=== PATIENT | male | born 1955 | race Caucasian/White ===

== ENCOUNTER → 2016-07-28 | Outpatient (CLI) | payer MEDICAID ==
--- NOTE | 2016-07-28 15:33 | US ---
Bilateral Lower Extremity Venous Doppler Study Clinical Indications: Bilateral lower extremity swelling. Technique: High-frequency transducer was used for compression imaging and Doppler study of the deep veins of both legs from the upper calves to the groins. Pulsed Doppler and color Doppler were utilize d, along with various maneuvers to assess flow in the deep veins. Findings Right Leg: The deep veins of the groin, thigh, knee, and upper calf are well displayed and normally compressible. Doppler flow patterns are unremarkable. There is no evidence of deep venous thrombosi s. Left Leg: The deep veins of the groin, thigh, knee, and upper calf are well displayed and normally c ompressible. Doppler flow patterns are unremarkable. There is no evidence of deep venous thrombosis . There is normal compression of the greater saphenous veins without superficial thrombosis. Bilateral calf edema is noted but no evidence of venous thrombosis. Impression: Normal bilateral venous Doppler study. Bilateral calf edema is present without evidence of thrombosis. Critical results relayed by Dr. Pierson to nuclear medical tech Demond, July 28, 2016, 1528 hours.
== END ==
LOC: FIMAGING 14:25
PROVIDERS: ATTEND Internal Medicine Hematology & Oncology
DX: M79.89 Other specified soft tissue disorders (principal); C84.48 Peripheral T-cell lymphoma, not elsewhere classified, lymph nodes of multiple sites

== ENCOUNTER → 2017-05-21 | Outpatient (CLI) | payer MEDICAID | LOC: FIMAGING 15:19 | PROVIDERS: ATTEND Nurse Practitioner | DX: J90 Pleural effusion, not elsewhere classified (principal); Z85.72 Personal history of non-Hodgkin lymphomas ==

== ENCOUNTER → 2017-05-28 | Outpatient (CLI) | payer MEDICAID ==
[~2017-05-28] MED LIST: LIDOCAINE 1% 300 MG/30 ML SDV ONE
== END ==
LOC: FIMAGING 14:33
PROVIDERS: ATTEND Internal Medicine Hematology & Oncology
PROC: 0W9B3ZZ Drainage of Left Pleural Cavity, Percutaneous Approach (ICD-10-PCS; principal; 2017-05-28)
DX: J90 Pleural effusion, not elsewhere classified (principal)
CPT/HCPCS: 85060-90; 88184-90; 88185-91

== ENCOUNTER → 2017-05-30 | Outpatient (CLI) | payer MEDICAID | LOC: FIMAGING 12:43 | PROVIDERS: ATTEND Internal Medicine Hematology & Oncology | PROC: 0W9B3ZZ Drainage of Left Pleural Cavity, Percutaneous Approach (ICD-10-PCS; principal; 2017-05-30) | DX: J90 Pleural effusion, not elsewhere classified (principal); I51.7 Cardiomegaly ==

== ENCOUNTER 2017-06-07 10:34 | Inpatient (IN) | payer MEDICAID ==
[2017-06-07] MEDS ORDERED: ONDANSETRON 4 MG/2 ML VIAL IVP PRN ×2 (11:04→17:33)
[2017-06-07] MEDS ORDERED: ACETAMINOPHEN 325 MG TAB PO PRN (11:04)
[2017-06-07] MEDS ORDERED: ONDANSETRON DISINTEGRATING 4 MG TAB PO PRN (11:04)
[2017-06-07] MEDS ORDERED: ALTEPLASE 2 MG VIAL IVP PRN (11:21)
[2017-06-07] MEDS ORDERED: ALLOPURINOL 300 MG TAB PO SCH (11:30)
[2017-06-07] MEDS: NS 1,000 ML IV SCH ×2 (12:42→18:24)
[2017-06-07] MEDS ORDERED: BUPIVACAINE 0.5% 30 ML SDV ONE (13:03)
--- NOTE | 2017-06-07 13:05 | PDANEPAE ---
ANE History of Present Illness 62 year old male with NHL presents with perforated bowel. ANE Past Medical History - Cardiovascular History Hx Hypertension: No Hx Arrhythmias: No Hx Chest Pain: No Hx Coronary Artery / Peripheral Vascular Disease: No Hx CHF / Valvular Disease: No Hx Palpitations: No Cardiovascular History Comment: Has had cardiotoxic chemotherapy treatment in past. (Last received chemo in September 2015) - Pulmonary History Hx COPD: No Hx Asthma/Reactive Airway Disease: No Hx Recent Upper Respiratory Infection: No Hx Oxygen in Use at Home: No Hx Sleep Apnea: No Pulmonary History Comment: Recent thoracentesis with 3L fluid pulled off. Does report shortness of breath. - Endocrine History Hx Diabetes: No Hypothyroid: No Hyperthyroid: No Obesity: no - Renal History Hx Renal Disorders: No - Liver History Hx Hepatic Disorders: No - Neurological & Psychiatric Hx Hx Neurological and Psychiatric Disorders: Yes Neurological / Psychiatric History Comment: Peripheral neuropathy following chemotherapy. Impacts finger and toe tips. - Cancer History Hx Cancer: Yes Cancer History Comment: NHL on chemo - Congenital Disorder History Hx Congenital Disorders: No - GI History Hx Gastrointestinal Disorders: Yes Gastrointestinal History Comment: Ruptured bowels. - Chronic Pain History Chronic Pain: No ANE Review of Systems Review of systems is: negative Review of Systems: - Exercise capacity Exercise capacity: >=4 METS ANE Patient History - Allergies Allergies/Adverse Reactions: No Known Allergies Allergy (Unverified 12/23/15 14:06) - Home Medications Home medications: home medication list seen and reviewed Home Medications: Ascorbic Acid [Vitamin C 500 mg (*)] 500 mg PO DAILY 06/07/17 [Last Taken Unknown] Ibuprofen [Motrin (*)] 200 mg PO Q8HRS PRN 06/07/17 [Last Taken 06/06/17] oxyCODONE IR [Oxycodone Ir (*)] 5 mg PO Q3-4PRN PRN 06/07/17 [Last Taken ] - NPO status NPO Status: no food or drink >8 hours - Anes Hx Anes Hx: no prior problems - Smoking Hx Smoking Status: Never smoked - Alcohol Use Alcohol Use: None - Family Anes Hx Family Anes Hx: neg - N/A ANE Labs/Vital Signs - Vital Signs Vital Signs: reviewed preoperatively; see RN documention for details Blood Pressure: 128/85 Heart Rate: 102 Respiratory Rate: 18 O2 Sat (%): 93 Height: 182.88 cm Weight: 72.121 kg ANE Physical Exam - Airway Mallampati Score: Class 2 Mouth exam: poor dentition, olvera - Pulmonary Pulmonary: no respiratory distress - Cardiovascular Cardiovascular: regular rate and rhythym - ASA Status ASA Status: IV ANE Anesthesia Plan Anesthesia Plan: general endotracheal anesthesia (Patient is a DNR, but through conversation with anesthesiologist, patient agrees to suspend DNR in the perioperative period. Per this discussion, DNR will go back in place following discharge from PACU. )
[2017-06-07] MEDS ORDERED: LR 1,000 ML IV ONE (13:06)
--- NOTE | 2017-06-07 13:07 | GHP ---
[f rep st] HISTORY AND PHYSICAL DATE OF ADMISSION: 06/07/2017 CHIEF COMPLAINT: Abdominal pain. HISTORY OF PRESENT ILLNESS: A 62-year-old male with a history of colon cancer status post surgical r esection and adjuvant treatment in 2003 with a newly diagnosed T-cell lymphoma in 2015 status post ch emotherapy. Patient has had a normally functioning ostomy until 7 days ago when he noted decreased o utput, increasing abdominal pain each day. Patient reports some nausea, no vomiting and describes ne joshua 0 output from his ostomy in the last 7 days. Does report taking in minimal fluids without vomit ing but has noted a decrease in his urination as well as darkening of his urine. Patient endorses melo bjective fevers and chills. Denies vision changes. Denies dysphagia. Denies dysuria, hematuria or lower extremity edema. Denies arthralgias or rashes. PAST MEDICAL HISTORY: 1. Colon cancer status post resection with ostomy. 2. T-cell lymphoma status post chemotherapy. 3. Acute myelogenous leukemia, receiving chemotherapy. SOCIAL HISTORY: Negative for tobacco. Occasionally smokes marijuana. Denies alcohol. FAMILY HISTORY: Negative for colon cancer or lymphoma. Patient's father did have a rectal tumor. Leonard canales does not know the details of it. This occurred at age 80 and lead to his . ADVANCED DIRECTIVES: Patient is do not resuscitate. His friend would be his medical decision maker. REVIEW OF SYSTEMS: A 10-point review of systems is negative with the exception of that reported in t he HPI. PHYSICAL EXAMINATION: VITAL SIGNS: Blood pressure 128/85, heart rate 102, respiratory rate 18, satu rating 93% on 1.5 L, temperature 37.4. GENERAL: This is a middle-aged male in no acute distress. H EENT: Notable for dry mucous membranes. Eye exam is negative for any icterus. CARDIAC: Patient's heart sounds are distant but regular. PULMONARY: Reduced breath sounds on the left. Reduced respir atory effort secondary to abdominal pain. No rales are appreciated. GASTROINTESTINAL: There are arielle wel sounds. Abdomen Is mildly distended and tender to palpation in all 4 quadrants, most of which in the right lower. There is no output in the ostomy bag. MUSCULOSKELETAL: Negative for any lower ex tremity edema. SKIN: Negative for any rashes. NEUROLOGIC: Patient is alert and oriented x3. PSYC HIATRIC: He is uncomfortable on my interview and examination. LABORATORY DATA: White count 19.2, hematocrit 41.1, platelets of 53. Creatinine 0.9. Sodium 136, L DH of 5395. Chest x-ray, which I personally reviewed and interpreted, from 05/30/2017, shows a large left-sided pleural effusion. ASSESSMENT AND PLAN: This is a 62-year-old male with newer diagnosis of AML, and abdominal pain. 1. Suspected acute bowel obstruction. Patient is certainly at risk for anatomic causes including ad hesions. However, after discussion with Oncology there is a concern for a chloroma as well related t o his leukemia. Patient has requested that we begin his workup with plain films of the abdomen as he has had multiple recent CT scans. Will make the patient n.p.o., initiate IV fluids, IV pain medicat ions and order abdominal imaging. Oncology will be following as well with recommendations. 2. Left-sided pleural effusion. This is related to the patient's leukemia. Per Dr. Matthews quite rare. Will re-image patient's chest as well. Currently requiring full 1.5 L of supplemental oxygen to maintain adequate oxygen saturations. Discussions related to chemotherapy are underway. 3. History of colon cancer. As above, patient's ostomy has not been functioning properly. Will rin ge and follow up. 4. Acute leukocytosis. Patient has had persistently elevated white counts. This may be exacerbated by acute bowel obstruction. Will work up as above. Can follow with Oncology. 5. Chronic thrombocytopenia. Patient's platelet counts are lower than previous; 53 today, as high a s 140 approximately 8 days ago. Again, discussing with the patient the initiation of chemotherapy. Prophylaxis with Lovenox when platelet counts will tolerate. DIET: N.p.o. for suspected small bowel obstruction. DISPOSITION: Greater than 2 midnights as the patient is presenting with acute abdominal complaints, concern for obstruction and will likely need the initiation of chemotherapy. I have discussed the ca se with Dr. Matthews and Dr. Soto. Will admit the patient to [address] [place] [id number] and initiate workup for smal l bowel obstruction. /[id number]/MODL
[2017-06-07] MEDS: MEROPENEM 1 GM in NS 100 ML IV SCH ×2 (13:38→21:42)
[2017-06-07] MEDS ORDERED: fentaNYL 100 MCG/2 ML INJ ONE (13:44)
[2017-06-07] MEDS ORDERED: PROPOFOL 200 MG/20 ML VIAL ONE (13:44)
[2017-06-07] MEDS ORDERED: ROCURONIUM 50 MG/5 ML VIAL ONE (13:45)
[2017-06-07] MEDS ORDERED: LIDOCAINE 2% 5 ML SDV ONE (13:45)
[2017-06-07] MEDS ORDERED: SUCCINYLCHOLINE CHLORIDE*ANESTHESIA ONLY*200 MG/10 ML SYR IVP ONE (13:45)
[2017-06-07] MEDS ORDERED: ONDANSETRON 4 MG/2 ML VIAL ONE (14:33)
[2017-06-07] MEDS ORDERED: HYDROmorphONE/DILAUDID 2 MG/ML INJ ONE (14:34)
[2017-06-07] MEDS ORDERED: SUGAMMADEX SODIUM 200 MG/2 ML VIAL IVP ONE (14:34)
[2017-06-07] MEDS ORDERED: PHENYLEPHRINE HCL 100 MCG/ML SYR ONE ×2 (16:12)
[2017-06-07] MEDS ORDERED: THROMBIN (BOVINE) 5,000 UNIT VIAL TP ONE (16:31)
[2017-06-07] MEDS ORDERED: ALBUMIN 5% 250 ML BOTTLE IV ONE (16:40)
[2017-06-07] MEDS ORDERED: NALOXONE HCL 0.4 MG/ML INJ IVP PRN ×2 (17:28→17:33)
[2017-06-07] MEDS ORDERED: fentaNYL 100 MCG/2 ML INJ IVP PRN (17:33)
[2017-06-07] MEDS ORDERED: HYDROmorphONE/DILAUDID 1 MG/ML INJ IVP PRN (17:33)
[2017-06-07] MEDS ORDERED: LR 500 ML IV PRN (17:33)
--- NOTE | 2017-06-07 17:37 | POSTANESTH ---
Post Anesthetic Evaluation Cardiovascular Status: Normal, Stable, Similar to Pre-Op Cond Respiratory Status: Normal, Stable, Similar to Pre-op Cond. Level of Consciousness/Mental Status: Can Participate in Eval, Alert and Oriented Pain Control: Adequate, Prn Tx Ordered Nausea/Vomiting Control: Adequate, Prn Tx Ordered Complications Possibly Related to Anesthesia: None Noted (Disposition is ICU, but patient extubated in OR so taken to PACU for anesthesia recovery before transferring to ICU. In PACU, patient hemodynamically stable (no pressors) and interacting appropriately.)
--- NOTE | 2017-06-07 17:39 | POSTOPPROG ---
Post Op Note Date of Operation: 06/07/17 Surgeon: Danielle Arango Strip Cutter: sai Anesthesiologist: andreas Anesthesia: GET(General Endotracheal) Pre-op Diagnosis: free air, pleural effusion Post-op Diagnosis: bowel perforation Indication: 62 yo with bowel perf Procedure: chest tube and ex lap with bowel resection Findings: terminal ileum stuck in pelvis, soft stool palpated in colon, cyst l kidney Inf/Abcess present in the surg proc area at time of surgery?: Yes Depth: Organ Space EBL: 100-500 Drains: Tano Kapoor, Other (chest tube - 3 L out in surgery) Specimen(s): peritoneal nodules bowel resection
--- NOTE | 2017-06-07 18:19 | GCON ---
[f rep st] CONSULTATION MEDICAL ONCOLOGY FOLLOWUP CONSULTATION DATE OF CONSULTATION: 06/07/2017 REFERRING PHYSICIAN: Kelly Quarles MD REASON FOR CONSULTATION: Ongoing management of acute myelogenous leukemia. RECOMMENDATIONS: 1. Agree with surgical consultation on an urgent basis due to free air noted under the diaphragm on his abdominal x-ray. 2. Agree with chest tube placement for his large left pleural effusion. 3. Treatment for his acute leukemia is temporarily on hold pending the results of his laparotomy. I deally, when he is able to be treated he will be treated with 3 days of idarubicin at 12 mg/sq m plus a continuous infusion of jneise-C at 100 mg/sq m days 1 through 7. 4. Eventually if all goes well, he will be a candidate for a bone marrow transplant. ASSESSMENT: This 62-year-old white male presents now with a likely therapy-induced acute myelogenous leukemia. He has noted for the past 10 days he has had no stool output from his colostomy. He has had increasing abdominal pain, probably on the right-hand side. He has also had recurring left pleur al effusion. This has been tapped twice. Leukemia blasts were noted in the in the fluid. The patie nt is now admitted for induction chemotherapy; however, because of the abdominal pain, he had an x-ra y of his abdomen, which revealed free air under the diaphragm. Therefore treatment for his acute michelle kemia was placed on hold, and he will be taken to the operating room for further evaluation. 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 This was diagnosed initially in [place], but he moved to [place] in the middle of his treatment. He apparently underwent 6 cycles of CHOP plus etoposide. He had complications, which included severe mucositis and febrile neutropenia. He had been in complete remission. He has also had history of Pneumocystis pneumonia. This was seen on a lung biopsy. HISTORY OF PRESENT ILLNESS: Please see Assessment. PAST MEDICAL HISTORY: Also remarkable for rectal cancer, which was diagnosed in 2003. He has not yee d any evidence of recurrence of his rectal cancer at this time. His father also had a rectal maligna ncy. SOCIAL HISTORY: The patient does not smoke or drink alcohol. 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 REVIEW OF SYSTEMS: Remarkable for no ostomy output for the past 10 days, right upper quadrant pain, and some shortness of breath. A 10-system review is otherwise unremarkable. PHYSICAL EXAMINATION: GENERAL: Reveals an alert, pale white male, in moderate distress. IMAGING DATA: His abdominal x-ray shows bowel perforation, constipation, and large left pleural effu jacinto. LABORATORY DATA: His CBC today showed a white count of 19,200 with a hemoglobin of 14.4 and a platel et count of 53,000. His creatinine is normal at 0.9. His uric acid was 5.5. His LDH was 5395. His albumin was 3.4. Thank very much for allowing us to continue to participate in this gentleman's care. We will evaluat e when to treat his acute leukemia pending the remainder of his evaluation and treatment for his navin l perforation. /[id number]/MODL
[2017-06-07] MEDS ORDERED: ACYCLOVIR 400 MG TAB PO SCH (21:00)
[2017-06-07] MEDS: morphINE PCA 30 MG/30 ML PCA IV PRN (21:33)
--- NOTE | 2017-06-07 22:10 | GCON ---
[f rep st] CONSULTATION DATE OF CONSULTATION: 06/07/2017 REFERRING PHYSICIAN: Kelly Quarles MD REASON FOR CONSULTATION: Free air. HISTORY OF PRESENT ILLNESS: A 62-year-old man with history of rectal cancer and T-cell lymphoma, now with acute myelogenous leukemia. He has not had ostomy output for approximately 10 days. He has in creased abdominal pain. He was seen at his oncologist's office and referred for admission. An x-ray was obtained, which showed near opacification of the left lung and free air. He has abdominal pain. PAST MEDICAL HISTORY: Rectal cancer. History of T-cell lymphoma. History of acute myelogenous leuk emia. PAST SURGICAL HISTORY: Colostomy. SOCIAL HISTORY: He does not use tobacco. FAMILY HISTORY: Not obtained due to the emergency of the situation. REVIEW OF SYSTEMS: Significant for abdominal pain and decreased ostomy output. Otherwise, 10-point review of systems negative. PHYSICAL EXAMINATION: VITALS: Reviewed. GENERAL: Pleasant, well-nourished man lying on bed. He a ppears ill. HEENT: Normocephalic. No gross hearing deficits. Mucous membranes moist. Pupils equa l and round. No scleral icterus. LUNGS: Only can auscultate breath sounds on the right side, which is clear. The left side is muffled. CARDIAC: Slightly tachycardic. No peripheral edema. ABDOMEN : His ostomy has a flat profile on the left side of the abdomen. There is gas in the bag but no sto ol. He has a low midline incision. He is soft. He is mildly tender to percussion. PSYCH: Mood an d affect normal. NEUROLOGIC: Grossly intact. MUSCULOSKELETAL: Normal nails. LAB RESULTS: I personally reviewed the results of his imaging and his laboratory. IMPRESSION AND PLAN: The patient is a 62-year-old man with history of rectal cancer and no stool out put, history of lymphoma, now leukemia; with free air and a pleural effusion. I will place a chest t ube in him and drain the effusion. I will also perform an exploratory laparotomy, look for the perfo ration and possibly perform a bowel resection. He understands he may be intubated after surgery. He understands there are risks and benefits, such as stroke, heart attack, , blood clots, leak, in fection, prolonged hospital stay, delaying chemotherapy. Unfortunately, the option of not going to s urgery will also be exceedingly dangerous for him. He had his questions answered to his satisfaction , signed the informed consent. He will have meropenem director of investigations to the operating room. /[id number]/MODL
[2017-06-07 23:03] LABS: ABSOLUTE NRBC COUNT 0.38 10^3/uL (0-0.01); ADD DIFF? YES; ADD MORPH? YES; ATYPICAL LYMPHOCYTE FLAG 0 (0-99); FRAGMENT RBC FLAG 0 (0-99); HEMATOCRIT 34.1 % (40.0-51.0); HEMOGLOBIN 11.5 g/dL (13.7-17.5); LEFT SHIFT FLG 90 (0-99); LIPEMIA HEMOLYSIS FLAG 80 (0-99); MEAN CELL HEMOGLOBIN CONCENTR. 33.7 g/dL (32.4-36.7); PLATELET COUNT 99 10^3/uL (150-400); RED BLOOD CELL COUNT 3.83 10^6/uL (4.40-6.38); RED CELL DISTRIBUTION WIDTH 15.6 % (11.5-15.2)
--- NOTE | 2017-06-07 23:05 | GOP ---
[f rep st] OPERATIVE REPORT DATE OF OPERATION: 06/07/2017 SURGEON: Patrice Mohan MD PREOPERATIVE DIAGNOSIS: POSTOPERATIVE DIAGNOSIS: PROCEDURE PERFORMED: FINDINGS: DESCRIPTION OF PROCEDURE: Intraoperative Consultation. HISTORY OF PRESENT ILLNESS: Dr. Arango has asked that I see the patient because of a left renal mass that was incidentally found during abdominal exploration. I have no imaging test to confirm its cons istency so on inspection the kidney had been mobilized and there was no Gerota's fascia or perinephri c fat remaining and the mass was identified. It was a lower pole exophytic mass. The capsule had so mewhat of an inflammatory component to it and it appeared almost as though it was a hemorrhagic cyst, felt ballotable. It was not invading into the parenchyma of the kidney but was more at the lower deloris e exophytic lesion. Intraoperative ultrasound was performed by me and the ultrasound revealed a non cystic lesion and it could have been a hemorrhage versus organized clot. At the present time because the gentleman's complex medical history #1 and #2, not having adequate imaging, #3 having a low plat elet count I had elected not to excise the lesion. I felt that after he gets through his chemotherap y that it would be appropriate to reassess this and reassessment at that point would imply that if it is solid, that we could do a partial nephrectomy, but I would prefer that he be recovered from his p resent condition. I did not biopsy the lesion because if so we would have spilt tumor cells intraabd ominally and I felt that was unnecessary, and if it was benign, it would not need a biopsy in the eusebia g run. So the options discussed were to do a partial nephrectomy, open the lesion up to see if it was a hemorrhagic cyst and cauterization of the lesions. The other would be to do a nephrectomy, but in light of future chemotherapy, it appeared that the upper part of the kidney really had normal palpat ion in size with no scarring and then felt it would be best for as much nephron affect for chemothera py in light of his other disease processes. PROCEDURE: Intraoperative ultrasound of the kidney and it was an intraoperative consultation for lef t renal mass. /[id number]/MODL
[2017-06-07 23:06] LABS: ADD SCAN? NO; NRBC-AUTO% 1.8 % (0.0-0.2); PLATELET CLUMPS FLAG 300 (0-99)
[2017-06-08 00:20] LABS: PLATELET ESTIMATE DECREASED (ADEQ)
[2017-06-08 00:23] LABS: POLYCHROMASIA 1+
[2017-06-08 00:24] LABS: TOXIC VACUOLIZATION PRESENT
--- NOTE | 2017-06-08 03:31 | GOP ---
[f rep st] OPERATIVE REPORT DATE OF OPERATION: 06/07/2017 SURGEON: Danielle rAango MD BRICK MOLDER HAND: Franco Vasquez MD who was needed for his technical expertise and timely completion of the case. ANESTHESIA: General. ANESTHESIOLOGIST: Ricardo Herndon MD PREOPERATIVE DIAGNOSIS: 1. Left pleural effusion. 2. Free air/bowel perforation. POSTOPERATIVE DIAGNOSIS: 1. Left pleural effusion. 2. Free air/bowel perforation. PROCEDURE PERFORMED: 1. Left chest tube thoracostomy. 2. Exploratory laparotomy with ileocecostomy and primary anastomosis. FINDINGS: serous pleural fluid. Peritoneal nodules. Ileum adhered in pelvis SPECIMENS: Peritoneal nodules, small bowel and cecum. ESTIMATED BLOOD LOSS: 500 cc. INDICATIONS: The patient is a 62-year-old with a history of rectal cancer, lymphoma and acute myelogenous leukemia, who presents with large pleural effusion and free air. DESCRIPTION OF PROCEDURE: The patient was brought into the operating room and placed supine on the table. General anesthesia was administered. His left chest was prepped and draped in the usual sterile fashion. I made a small incision over the rib space and I dissected down with a knife. I entered the pleural cavity with a hemostat. I directed a 28-Slovak chest tube into the pleural cavity. There was a large amount of fluid evacuated, in total 3 L, throughout the case. The chest tube was sewn into place. A dressing was applied. His abdomen was prepped and draped in the usual sterile fashion. I made an incision from above the umbilicus and carefully dissected down below the umbilicus. I dissected down through the subcutaneous tissues. I elevated the peritoneum and sharply entered this. I then found a plane, where I could remove the omentum from the abdominal wall. Once this was freed, I could then explore his abdomen. I ran his small bowel from the ligament of Treitz to the terminal ilium. He had a large loop stuck in his pelvis. There were no obvious areas of perforation in the small bowel or colon, no stool in abdominal cavity. The stomach appeared normal. He had nodules throughout his mesentery and on part of the bowel. The right colon and transverse colon were extremely full with soft stool. The colon before his ostomy was decompressed. In the left retroperitoneum, a mass was palpated. I carefully dissected the mass and it appeared to be a cyst coming off the kidney. Due there not being an obvious source of free air, I believed the free air was coming from the loop of bowel stuck in the pelvis. I was able to free the enlarged appendix from the ileum. I divided the mesentery and divided the appendicial artery. I clamped the base of the appendix and tied it off and ligated it. I then placed a purse string suture in the cecum and dunked the appendix. I continued to explore the area of small bowel in the pelvis. There was also tumor burden in this area. I performed dissection and was ultimately able to remove this loop and bring it up into the abdominal wall. As this was extremely adhered deep in the pelvis, part of the small bowel was perforated. I aligned the small bowel and the cecum on the antimesenteric border and placed sutures. I placed an Endo AUGUSTUS 75 and then came across the base with the AUGUSTUS 75. There was a defect in the colonic side and so I revised the anastomosis. I made 2 additional enterotomies in each limb of the bowel and placed a AUGUSTUS 75 and created a [id number]-wi-nhra functional end-to-end anastomosis. I then transected this end with the AUGUSTUS 75. I placed 3-0 Vicryl pop-offs to reinforce the staple line. Hemostasis was achieved. I called Dr. Mohan into the room and had him examine the mass on his kidney. Dr. Mohan felt that it was a hemorrhagic cyst and since his platelets were 50, that removing it would not be prudent. Performed copious irrigation with over 6 L of fluid. Thrombin was placed in his pelvis and a 19 round silicone drain was placed into the pelvis, exiting the right lower quadrant. Gown and gloves were changed for clean closure. The fascia was closed with #1 PDS. The wound was irrigated. Skin closed with surjit. Dressing applied. I placed a new ostomy appliance. He was awakened in the operating room, extubated, and transferred to PACU in stable condition. /[id number]/MODL MTDD
[2017-06-08] MEDS: MEROPENEM 1 GM in NS 100 ML IV SCH ×3 (05:04→23:06)
[2017-06-08] MEDS: NS 1,000 ML IV SCH ×2 (05:04→18:09)
[2017-06-08 05:26] LABS: ABSOLUTE NRBC COUNT 0.24 10^3/uL (0-0.01); ADD DIFF? YES; ADD MORPH? YES; ATYPICAL LYMPHOCYTE FLAG 0 (0-99); FRAGMENT RBC FLAG 0 (0-99); HEMATOCRIT 31.9 % (40.0-51.0); HEMOGLOBIN 10.9 g/dL (13.7-17.5); LEFT SHIFT FLG 70 (0-99); LIPEMIA HEMOLYSIS FLAG 90 (0-99); MEAN CELL HEMOGLOBIN 30.5 pg (27.9-34.1); MEAN CELL HEMOGLOBIN CONCENTR. 34.2 g/dL (32.4-36.7); MEAN CELL VOLUME 89.4 fL (81.5-99.8); MEAN PLATELET VOLUME 10.4 fL (8.7-11.7); PLATELET CLUMPS FLAG 0 (0-99); PLATELET COUNT 62 10^3/uL (150-400); RED BLOOD CELL COUNT 3.57 10^6/uL (4.40-6.38); RED CELL DISTRIBUTION WIDTH 15.5 % (11.5-15.2)
[2017-06-08 05:35] LABS: ADD SCAN? NO; NRBC-AUTO% 1.2 % (0.0-0.2)
[2017-06-08 05:40] LABS: ANION GAP 10 mEq/L (8-16); CALCIUM 6.9 mg/dL (8.5-10.4); CARBON DIOXIDE 22 mEq/l (22-31); CHLORIDE 106 mEq/L (97-110); CREATININE 0.9 mg/dL (0.7-1.3); GLOMERULAR FILTRATION RATE > 60; GLUCOSE 118 mg/dL (70-100); POTASSIUM 4.5 mEq/L (3.5-5.2); SODIUM 138 mEq/L (134-144); URIC ACID 6.1 mg/dL (3.5-8.5)
[2017-06-08 06:51] LABS: PLATELET ESTIMATE DECREASED (ADEQ)
[2017-06-08 06:52] LABS: TOXIC VACUOLIZATION PRESENT
[2017-06-08] MEDS: FLUCONAZOLE/NaCl 100 ML IV SCH (08:52)
[2017-06-08] MEDS ORDERED: ENOXAPARIN 40 MG/0.4 ML SYR SC SCH (09:00)
[2017-06-08] MEDS ORDERED: FLUCONAZOLE 100 MG TAB PO SCH (09:00)
--- NOTE | 2017-06-08 09:56 | ASMTCASEMG ---
Living Arrangements What is your living Answers: Alone arrangement? Who do you live with? Type Of Residence What kind of residence do Answers: House you live in? Discharge Plan Comments Coordination Status Comments Notes: Patient is a 62yo male with a hx of colon cancer and a newly diagnosed T-cell lymphoma in 2014. He was admitted for a suspected acute bowel obstruction, left sided pleural effusion, and chronic thrombocytopenia. Patient lives alone in [place] and lists his sister Isabel Delarosa ([phone]) as next of kin. OT/PT have been ordered. PT is recommending SNF rehab. Awaiting OT eval.CM will follow. Date Signed: 06/08/2017 09:56 AM Electronically Signed By:Raissa Butler LCSW
--- NOTE | 2017-06-08 12:14 | PDMN ---
Medical Necessity Medical necessity: est los>2mn for suspected acute bowel obstruction, L pleural effusion, leukocytosis; admit for w/u, IVF, IV pain meds, possible initiation of chemotherapy; comorbid AML on chemo, hx colon CA and T cell lymphoma; per order and H&P 06/07/17
--- NOTE | 2017-06-08 12:40 | SOAPPROG ---
SOAP Progress Note Assessment/Plan: Assessment: Bowel perforation Left pleural effusion AML History of lymphoma History of rectal cancer Plan: 62 yo male with history of rectal cancer, lymphoma, and AML admitted for worsening abdominal pain and no stool output for 10 days. Pt was found to have opacification of left lung and free air on CXR. Pt was then taken to the OR, where a tube thoracostomy, exploratory laparotomy, and ileocectomy with anastomosis. 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 Continue Chest tube to suction. Repeat CXR in am Cards - Monitor tachycardia GI - Awaiting bowel function to return. Continue RICCO to bulb suction FEN - NPO may have a popsicle for comfort Heme/ID Meropenem and Fluconazole. Monitor CBC. May need additional platelets. Consider irradiated blood if H/H drops - Continue barnes for accurate Is and Os Dispo - SDU okay if bed needed in ICU 06/08/17 12:54 06/08/17 17:52 Subjective: Today, pt is doing well. He reports pain associated with the procedure, and is using his WATER VALVE MECHANIC about every 15 min. He does report an improvement in his breathing , but does feel some pain associated with the chest tube and pain with taking deep breaths. Reports an increase in belching. Denies any nausea or vomiting. Denies any output from his stoma. Objective: General: No acute distress. Resting comfortably. Eating ice chips. Skin: Warm and dry. Resp: Chest tube in place draining serosanguineous fluid. Clear to auscultation on right, some crackles on left Cardiac: Tachycardic, but regular. No peripheral edema. DP/PT pulses 2+ and equal. Abdomen: Non distended. Dressings appear clean and dry. No bruising to the abdomen. RICCO drain in place draining serosanguineous fluid. : Barnes catheter in place, draining clear yellow urine. MSK: Moving all extremities equally Neuro: Awake and alert Vital Signs Temp Pulse Resp BP Pulse Ox 36.6 C 105 H 24 H 113/76 93 06/08/17 12:00 06/08/17 12:00 06/08/17 12:00 06/08/17 12:00 06/08/17 12:00 Laboratory Results 06/08/17 05:10 06/08/17 05:10 06/07/17 06/08/17 06/09/17 05:59 05:59 05:59 Intake Total 3093 Output Total 5020 50 Balance -1927 -50 ICD10 Worksheet Patient Problems: Problems Problem Status Onset Fever Acute Vomiting Acute Ataxia Chronic
--- NOTE | 2017-06-08 14:24 | SOAPPROG ---
SOAP Progress Note Assessment/Plan: Assessment: - s/p ex lap for perforated viscus - patient appears to have tolerated the surgery fairly well. He is no intubated. He is eating a popsicle. - Therapy induced AML - It will probably be next week at the earliest before induction could begin. However, the patient is currently considering whether or not he wishes to be induced vs BSC. - Malignant L pleural effusion - s/p chest tube placement Plan: Post op care - transfer back to when he can be discharged from the ICU Monitor counts and transfuse as needed Continue discussion about induction/BMT vs. best supportive care. Subjective: He is unsure as to if he wishes to pursue aggressive treatment of his AML vs best supportive care. Objective: Vital Signs Temp Pulse Resp BP Pulse Ox 36.6 C 105 H 24 H 113/76 93 06/08/17 12:00 06/08/17 12:00 06/08/17 12:00 06/08/17 12:00 06/08/17 12:00 Laboratory Results 06/08/17 05:10 06/08/17 05:10 06/06/17 06/07/17 06/08/17 23:59 23:59 23:59 Intake Total 2000 1092 Output Total 4040 1030 Balance -2039 62 Physical Exam - Physical Exam General Appearance: alert, moderate distress Skin: pallor Neuro/Psych: alert, oriented x 3 ICD10 Worksheet Patient Problems: Problems Problem Status Onset Fever Acute Vomiting Acute Ataxia Chronic
[2017-06-08] MEDS: morphINE PCA 30 MG/30 ML PCA IV PRN (14:44)
--- NOTE | 2017-06-08 14:54 | ECHO ---
[email or web address] [address] [address] Main: [phone] Fax: Transthoracic Echocardiogram Name: USMAN PUENTE MR#: [id number] Study Date: 06/08/2017 Study Time: 08:41 AM Date of : 1955 Age: 62 year(s) Height: 182.9 cm (72 in.) Weight: 72.12 kg (159 lb.) BSA: 1.93 m2 Gender: Male Examination: Echo Indication: prior to anthracycline chemo Image Quality: Technically Difficult Contrast: Requested by: Jamie Matthews BP: 126 mmHg/72 mmHg Heart Rate: Rhythm: Normal sinus rhythm Indication: prior to anthracycline chemo Procedure Staff Material Reprocessing Associate: Dari Kyle Reading Physician: Yousif Michelle Requesting Provider: Conclusions: Normal global systolic LV function. EF is 55 %. Trivial mitral valve regurgitation. Mild tricuspid regurgitation is present. The pulmonary artery pressure is mild to moderately increased. Small pericardial effusion. Measurements: Chambers Valvular Assessment AV/MV Valvular Assessment TV/PV Normal Normal Normal Name Value Range Name Value Range Name Value Range Ao Dyana (MM): 3.6 cm (2.2 cm-3.7 AV Vmax: 1.12 m/s (1 m/s-1.7 TR Vmax: 3.00 mm/s ( - ) cm) m/s) TR PGmax: 36 mmHg ( - ) IVSd (2D): 0.9 cm (0.6 cm-1.1 AV maxP mmHg ( - ) syst. PAP: 41 mmHg ( - ) cm) LVOT Vmax: 0.94 m/s (0.7 m/s-1.1 PV Vmax: 0.48 m/s (0.6 m/s-0.9 LVDd (2D): 3.4 cm (4.2 cm-5.9 m/s) m/s) cm) MV E Vmax: 0.59 m/s ( - ) PV PGmax: 1 mmHg ( - ) LVDs (2D): 2.3 cm (2.1 cm-4 MV A Vmax: 0.73 m/s ( - ) cm) MV E/A: 0.81 ( - ) LVPWd (2D): 1.0 cm (0.6 cm-1 cm) LVEF (BP): 55 % (>=55 %) Continued Measurements: Chambers Valvular Assessment TV/PV Name Value Name Value LADs Lon.9 cm CVP (est.): 5 mmHg LA Area: 10.2 cm2 Patient: USMAN PUENTE Study Date: 06/08/2017 Page 1 of 2 08:41 AM Additional Vessels Name Value Ao Ascendin.2 cm Findings: Left Ventricle: Normal size left ventricle. Borderline concentric LV hypertrophy. Normal global systolic LV function. EF is 55 %. No regional wall motion abnormality. Unable to assess diastolic dysfunction. Right Ventricle: Normal size right ventricle. Normal RV function. Left Atrium: The left atrium is normal in size. Right Atrium: The right atrium is normal in size. Mitral Valve: The mitral valve is normal in appearance. Trivial mitral valve regurgitation. Aortic Valve: The aortic valve is tri-leaflet. There is no aortic valve regurgitation. No aortic valve stenosis is present. Tricuspid Valve: The tricuspid valve appears normal. Mild tricuspid regurgitation is present. Right ventricular systolic pressure measures 41mmHg. The pulmonary artery pressure is mild to moderately increased. Pulmonic Valve: The pulmonic valve is normal in appearance and function. Aorta: Normal size aortic root measuring 3.6 cm. Normal size ascending aorta measuring 3.2 cm. Pericardium: Small pericardial effusion. Bilateral pleural effusion. (No Signature Object) Patient: USMAN PUENTE Study Date: 06/08/2017 Page 2 of 2 08:41 AM [id number]
--- NOTE | 2017-06-08 17:22 | HOSPPROG ---
Hospitalist Progress Note Assessment/Plan: DIAGNOSES: Bowel perforation and peritonitis Left pleural effusion, with chest tube thoracostomy AML current plans for treatment on hold due to acute illness History of lymphoma History of rectal cancer The patient remains fairly ill with ongoing significant abominal pain after surgery. Will need ongoing antibiotics and careful monitoring of his abdomen. PLANS: continue current antibiotics for management of peritonitis, cultures pending continue IV fluids clear liquids per surgery reviewed with Dr Soto in detail today SUBJECTIVE: the patient is having quite a bit of pain he is not using much medication via his SUPERVISOR FILES no nausea so far no chills OBJECTIVE Vitals reviewed: Tachycardic, but pulse and respirations stable no fever Cad Drafter, my review: sinus Exam: alert oriented skin warm dry color ok resps not labored lungs clear BSs heart regular abd soft nondistended nontender, bowel sounds present limbs warm, no edema iv site ok Cultures pending 'a Objective: Vital Signs Temp Pulse Resp BP Pulse Ox 36.6 C 111 H 26 H 127/74 H 91 L 06/08/17 12:00 06/08/17 16:00 06/08/17 16:00 06/08/17 16:00 06/08/17 16:00 Laboratory Results 06/08/17 05:10 06/08/17 05:10 06/07/17 06/08/17 06/09/17 06:59 06:59 06:59 Intake Total 3093 Output Total 5020 310 Balance -1927 -310 - Time Spent With Patient Time Spent with Patient: greater than 35 minutes Time Spent with Patient: Greater than 35 minutes spent on this patients care, greater than 50% of time spent counseling, educating, and coordinating care regarding the above mentioned plan. ICD10 Worksheet Patient Problems: Problems Problem Status Onset Fever Acute Vomiting Acute Ataxia Chronic
--- NOTE | 2017-06-08 20:23 | GCON ---
[f rep st] CONSULTATION MOLD PARTER CONSULTATION HISTORY OF PRESENT ILLNESS: The patient is examined postoperatively after receiving a chest tube, th oracostomy, exploratory lap with ileocecostomy, and primary anastomosis. The patient is a very pleas ant, 62-year-old white male with past medical history of colon cancer with resection and ostomy, T-ce ll lymphoma, and acute myelogenous leukemia. His colon cancer was in 2003. Prior to admission he no anthony some nausea, but no vomiting, and decreased output through his ostomy over the previous week. He was admitted with a suspected acute bowel obstruction. He went to the operating room. He was also found to have a large left-sided pleural effusion. Currently, he is resting comfortably and debating whether to continue with chemotherapy. His pain is somewhat well controlled at this point. He is c urrently on a MAIL CLERK pump. PAST MEDICAL HISTORY: Significant for colon cancer, T-cell lymphoma, acute myelogenous leukemia. ALLERGIES: No known allergies to medications. SOCIAL HISTORY: No history of tobacco use. No history of alcohol use. Occasional marijuana use. CURRENT MEDICATIONS: Tylenol, meropenem, fluconazole, morphine, and Zofran. PHYSICAL EXAM: VITAL SIGNS: Blood pressure is 113/76, pulse 105, respirations 24, temperature 36.6, oxygen saturation 93% on 2 L. GENERAL: He is a thin, elderly white male who is resting comfortably in no acute distress. HEENT: Eyes SILVANO, EOMI. Throat shows no erythema or tonsillar hypertrophy. NECK: Supple. No cervical adenopathy. HEART: Regular rate and rhythm without murmurs, rubs, gall ops. LUNGS: Diminished breath sounds, but no wheeze. ABDOMEN: Soft, appropriately tender. Bowel sounds are diminished. EXTREMITIES: No clubbing, cyanosis, or edema. LABORATORIES: White count 20,000, hemoglobin 10, hematocrit 31, platelet count is 62, sodium 138, po tassium 4.5, chloride 106, CO2 22, BUN 19, creatinine 0.9, glucose is 118. IMPRESSION: 1. Bowel obstruction. 2. Status post exploratory laparotomy with ileocecostomy and primary anastomosis. 3. Large pleural effusion, status post chest tube drainage. 4. History of colon cancer. 5. T-cell lymphoma. 6. Acute myelogenous leukemia. RECOMMENDATIONS: 1. Continue current pain coverage. 2. Agree with current antibiotic coverage. 3. Follow chest x-ray closely for recurrence of pleural effusion. 4. The patient is deciding upon PICC line and continued chemotherapy. /[id number]/MODL
[2017-06-08] MEDS ORDERED: NS BOLUS 1000 ML (Wide open) IV ONE (20:30)
[2017-06-09] MEDS: morphINE PCA 30 MG/30 ML PCA IV PRN (05:03)
[2017-06-09] MEDS: NS 1,000 ML IV SCH (05:03)
[2017-06-09] MEDS: MEROPENEM 1 GM in NS 100 ML IV SCH (05:06)
[2017-06-09 06:00] LABS: ABSOLUTE NRBC COUNT 0.36 10^3/uL (0-0.01); ADD DIFF? YES; ADD MORPH? YES; ATYPICAL LYMPHOCYTE FLAG 0 (0-99); FRAGMENT RBC FLAG 0 (0-99); HEMATOCRIT 30.5 % (40.0-51.0); HEMOGLOBIN 10.4 g/dL (13.7-17.5); LIPEMIA HEMOLYSIS FLAG 90 (0-99); MEAN CELL HEMOGLOBIN 31.1 pg (27.9-34.1); MEAN CELL HEMOGLOBIN CONCENTR. 34.1 g/dL (32.4-36.7); MEAN CELL VOLUME 91.3 fL (81.5-99.8); MEAN PLATELET VOLUME 7.6 fL (8.7-11.7); PLATELET CLUMPS FLAG 30 (0-99); RED BLOOD CELL COUNT 3.34 10^6/uL (4.40-6.38); RED CELL DISTRIBUTION WIDTH 15.7 % (11.5-15.2)
[2017-06-09 06:01] LABS: ADD SCAN? NO; LEFT SHIFT FLG 130 (0-99); NRBC-AUTO% 1.3 % (0.0-0.2)
[2017-06-09 06:03] LABS: PLATELET COUNT 26 10^3/uL (150-400)
[2017-06-09 06:26] LABS: ANION GAP 11 mEq/L (8-16); CALCIUM 6.8 mg/dL (8.5-10.4); CARBON DIOXIDE 20 mEq/l (22-31); CHLORIDE 104 mEq/L (97-110); CREATININE 1.2 mg/dL (0.7-1.3); GLOMERULAR FILTRATION RATE > 60; GLUCOSE 122 mg/dL (70-100); POTASSIUM 4.6 mEq/L (3.5-5.2); SODIUM 135 mEq/L (134-144)
[2017-06-09 06:55] LABS: PLATELET ESTIMATE DECREASED (ADEQ); TOXIC VACUOLIZATION PRESENT
[2017-06-09 06:56] LABS: POLYCHROMASIA 1+
[2017-06-09 08:26] VITALS: TEMP 98.3
[2017-06-09] MEDS: FLUCONAZOLE/NaCl 100 ML IV SCH (08:47)
[2017-06-09] MEDS ORDERED: NS 1,000 ML IV ONE (09:26)
--- NOTE | 2017-06-09 09:46 | HOSPPROG ---
Hospitalist Progress Note Assessment/Plan: DIAGNOSES: Bowel perforation and peritonitis Acute sepsis with tachycardia tachypnea fever high white count in setting of peritonitis Acute hypoxemic respiratory failure, multifactorial Suspect left lung pneumonia versus atelectasis Left pleural effusion, with chest tube thoracostomy Mild acute kidney injury is hemodynamic in etiology most likely AML current plans for treatment on hold due to acute illness History of lymphoma History of rectal cancer The patient remains fairly ill with ongoing significant abominal pain after surgery. Will need ongoing antibiotics and careful monitoring of his abdomen. PLANS: Will give another L of normal saline fluid bolus now, and check a serum lactate to determine if there is a lactic acidosis versus low bicarbonate from hyperventilation for respiratory reasons Follow renal function closely Will check platelets again later today Continue meropenem, but will add Flagyl at this point to cover full bowel zenobia , however will consult Infectious Disease at this time to be certain this is optimal. continue IV fluids clear liquids per surgery Continue ACQUISITION CONSULTANT for pain control reviewed with Dr. Arango and Dr Soto in detail today SUBJECTIVE: So far pain is better today. He is notably more short of breath today, without chest pain or cough No chills or sweats OBJECTIVE Vitals reviewed: Temperature 38 degrees last night has been afebrile since, remains tachycardic and now notably more tachypneic blood pressure is good Placing Judge, my review: sinus Exam: alert oriented skin warm dry color ok resps not labored lungs clear BSs heart regular abd soft nondistended nontender, bowel sounds present limbs warm, no edema iv site ok Cultures pending Laboratory data: He has a slightly low bicarbonate level today with a metabolic acidosis likely, though this could be due to hyperventilation from Respiratory issues BUN and creatinine are up slightly Platelets down to 26,000 White count up to 28,000 Chest x-ray this morning: Significant increase in density throughout the left lung compared to yesterday, with the right lung looking very good, making this most likely a pneumonia; some pleural fluid persists on the left Objective: Vital Signs Temp Pulse Resp BP Pulse Ox 36.8 C 135 H 35 H 113/84 H 87 L 06/09/17 08:23 06/09/17 08:23 06/09/17 08:23 06/09/17 08:23 06/09/17 08:23 Laboratory Results 06/09/17 05:13 06/09/17 05:13 06/08/17 06/09/17 06/10/17 06:59 06:59 06:59 Intake Total 3093 3238 Output Total 5020 1390 80 Balance -1927 1848 -80 - Time Spent With Patient Time Spent with Patient: greater than 35 minutes Time Spent with Patient: Greater than 35 minutes spent on this patients care, greater than 50% of time spent counseling, educating, and coordinating care regarding the above mentioned plan. ICD10 Worksheet Patient Problems: Problems Problem Status Onset Fever Acute Vomiting Acute Ataxia Chronic
--- NOTE | 2017-06-09 09:50 | HOSPPROG ---
Hospitalist Progress Note Assessment/Plan: DIAGNOSES: Bowel perforation and peritonitis Acute sepsis with tachycardia tachypnea fever high white count in setting of peritonitis Acute hypoxemic respiratory failure, multifactorial Suspect left lung pneumonia versus atelectasis Left pleural effusion, with chest tube thoracostomy Mild acute kidney injury is hemodynamic in etiology most likely AML current plans for treatment on hold due to acute illness History of lymphoma History of rectal cancer The patient remains fairly ill with ongoing significant abominal pain after surgery. Will need ongoing antibiotics and careful monitoring of his abdomen. PLANS: Will give another L of normal saline fluid bolus now, and check a serum lactate to determine if there is a lactic acidosis versus low bicarbonate from hyperventilation for respiratory reasons Follow renal function closely Will check platelets again later today Continue meropenem, but will add Flagyl at this point to cover full bowel zenobia , however will consult Infectious Disease at this time to be certain this is optimal. continue IV fluids clear liquids per surgery Continue BACKWINDER for pain control reviewed with Dr. Arango and Dr Soto in detail today SUBJECTIVE: So far pain is better today. He is notably more short of breath today, without chest pain or cough No chills or sweats OBJECTIVE Vitals reviewed: Temperature 38 degrees last night has been afebrile since, remains tachycardic and now notably more tachypneic blood pressure is good Rn Radiation, my review: sinus Exam: alert oriented skin warm dry color ok resps not labored lungs clear BSs heart regular abd soft nondistended nontender, bowel sounds present limbs warm, no edema iv site ok Cultures pending Laboratory data: He has a slightly low bicarbonate level today with a metabolic acidosis likely, though this could be due to hyperventilation from Respiratory issues BUN and creatinine are up slightly Platelets down to 26,000 White count up to 28,000 Chest x-ray this morning: Significant increase in density throughout the left lung compared to yesterday, with the right lung looking very good, making this most likely a pneumonia; some pleural fluid persists on the left Objective: Vital Signs Temp Pulse Resp BP Pulse Ox 36.8 C 135 H 35 H 113/84 H 87 L 06/09/17 08:23 06/09/17 08:23 06/09/17 08:23 06/09/17 08:23 06/09/17 08:23 Laboratory Results 06/09/17 05:13 06/09/17 05:13 06/08/17 06/09/17 06/10/17 06:59 06:59 06:59 Intake Total 1278 3230 Output Total 0920 1390 80 Balance -1927 1848 -80 ICD10 Worksheet Patient Problems: Problems Problem Status Onset Fever Acute Vomiting Acute Ataxia Chronic
--- NOTE | 2017-06-09 09:51 | SOAPPROG ---
SOAP Progress Note Assessment/Plan: Assessment: Assessment and Plan: 62 yo male with history of rectal cancer, lymphoma, and AML admitted for worsening abdominal pain and no stool output for 10 days. Pt was found to have L lung pleural effusion and free air on CXR. POD # 2 s/p ex lap with ileocectomy and L chest tube placement. Carcinomatosis. 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 Continue Chest tube to suction. Stat CXR. Tachypneic increased O2 requirements. Transfer to SDU Cards - Tachycardia worsening GI - Awaiting bowel function to return. Continue RICCO to bulb suction FEN - NPO. Max 1 cup ice per shift and 1 popsicle per shift Heme/ID Meropenem and Fluconazole. Monitor CBC. May need additional platelets. Thrombocytopenia worsening but no overt signs of bleeding. Irradiated blood if H/H drops - Nuñez was removed yesterday. Strict Is and Os Dispo -Transfer to SDU. DW Dr Kirkpatrick 06/08/17 12:54 06/08/17 17:52 06/09/17 09:48 Subjective: No flatus. Having belching. Short of breath Objective: Vital Signs Temp Pulse Resp BP Pulse Ox 36.8 C 135 H 35 H 113/84 H 87 L 06/09/17 08:23 06/09/17 08:23 06/09/17 08:23 06/09/17 08:23 06/09/17 08:23 Laboratory Results 06/09/17 05:13 06/09/17 05:13 06/08/17 06/09/17 06/10/17 05:59 05:59 05:59 Intake Total 3093 3238 Output Total 5020 1390 80 Balance -1927 1848 -80 Sitting in bed. Drinking [place] Oxymask in place. Increased work of breathing but able to speak in full sentences Lungs with decreased breath sound bilaterally L worse than right Chest tube with no air leak. 250 out in 24 hours Abdomen distended. Hypoactive bowel sounds. Drain with serosang. Dressing cdi. Ostomy pink and flat with no gas in bag No obvious gingival bleeding ICD10 Worksheet Patient Problems: Problems Problem Status Onset Fever Acute Vomiting Acute Ataxia Chronic
[2017-06-09 10:07] VITALS: BP 95/67; PULSE 116; RESP 31; O2SAT 92
[2017-06-09 10:13] LABS: ALBUMIN 2.6 g/dL (3.5-5.0); BILIRUBIN,TOTAL 1.6 mg/dL (0.1-1.4); BILIRUBIN-CONJUGATED 0.7 mg/dL (0.0-0.5); BILIRUBIN-UNCONJUGATED 0.9 mg/dL (0.0-1.1); TOTAL PROTEIN 4.5 g/dL (6.3-8.2)
--- NOTE | 2017-06-09 10:38 | PDINTPN ---
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 Oxygen saturations are approximately 97 on high-flow oxygen. * History of lymphoma * History of colon cancer * AML * Do not resuscitate Plan: I arrived at the patient's room, at which time he was found to be bradycardic. As he is do not resuscitate, cardiopulmonary resuscitation was not started. He subsequently evolved into pulseless ventricular tachycardia and subsequently asystole. He was pronounced at 10:31 a.m. Objective: Vital Signs Temp Pulse Resp BP Pulse Ox 36.8 C 116 H 31 H 95/67 L 92 06/09/17 08:23 06/09/17 10:00 06/09/17 10:00 06/09/17 10:00 06/09/17 10:00 Laboratory Results 06/09/17 05:13 06/09/17 05:13 06/08/17 06/09/17 06/10/17 05:59 05:59 05:59 Intake Total 3093 3238 Output Total 5020 1390 80 Balance -1927 1848 -80 ICD10 Worksheet Patient Problems: Problems Problem Status Onset Fever Acute Vomiting Acute Ataxia Chronic
--- NOTE | 2017-06-09 19:03 | ASDISCHSUM ---
Discharge Information Plan Status: Medically Cleared to Leave:06/08/2017 Discharge Date:06/09/2017 10:31 AM CM D/C Disposition: ADT D/C Disposition: Projected Discharge Date:06/09/2017 10:31 AM Transportation at D/C:None or Unknown Discharge Delay Reason: Follow-Up Date:06/09/2017 10:31 AM Discharge Slot: Final Diagnosis:Bowel perforation, left pleural effusion, RLL PNA, acute resp failure Placement Information Patient Contact Information Contact Name:VICKI Relationship:Sister Address: Work Phone: [place] [facility] [place] Phone: [facility]/Zip Code: Email: Financial Information Financial Class: Primary Plan Desc:[employer] [place] Primary Plan Number:[id number] Secondary Plan Desc: Secondary Plan Number: Assessment Information [facility] Initial CM Assessment Living Arrangements What is your living Answers: Alone arrangement? Who do you live with? Type Of Residence What kind of residence do Answers: House you live in? Discharge Plan Comments Coordination Status Comments Notes: Patient is a 62yo male with a hx of colon cancer and a newly diagnosed T-cell lymphoma in 2014. He was admitted for a suspected acute bowel obstruction, left sided pleural effusion, and chronic thrombocytopenia. Patient lives alone in [place] and lists his sister Isabel Delarosa ([phone]) as next of kin. OT/PT have been ordered. PT is recommending SNF rehab. Awaiting OT eval.CM will follow. Date Signed: 06/08/2017 09:56 AM Electronically Signed By:Raissa Butler LCSW [facility] CM Progress Note CM Note CM Note Notes: To pt's bedside following expiration. Assisted Roxane, RN and Yusuf Michel RN in contacting pt's family - sister, Isabel Delarosa, next of kin; brother, Jonah Delarosa; and long-time family friend, Leonardo. Pastoral care paged for support and assistance w/ out of state family. Family given mortuary resources via email, per Chaplain Chilango on-call. Support provided for family friends at bedside; tissue and water obtained. Friends also provided w/ Grief Support information. business card provided for any additional needs or concerns. Date Signed: 06/09/2017 07:01 PM Electronically Signed By:María Elena Carvajal RN Intervention Information Intervention Type:*Incorrect Registration Date of Service:06/08/2017 12:14 PM Patient Type:Observation Staff Member:LUKE Boogie Susan Hours: Discipline: Severity: Comment: Intervention Type:End of Life Date of Service:06/09/2017 07:01 PM Patient Type:Inpatient Staff Member:LUKE Carvajal Taylor Hours:1 Discipline: Severity: Comment:See CM note. Support provided for fami ly friends and out of state siblings.
--- NOTE | 2017-06-09 21:49 | GDS ---
[f rep st] DISCHARGE SUMMARY The patient was admitted to the hospital on June 07, 2017. He in the hospital on . DIAGNOSES: 1. Acute peritonitis with small-bowel perforation and free air intraperitoneal. 2. 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 3. Acute sepsis. 4. Acute respiratory failure, hypoxemic. 5. Large recurrent left pleural effusion, malignant. 6. Thrombocytopenia related to leukemia. CONSULTATIONS: Dr. Bandar Soto of Oncology. Dr. Danielle Arango of Surgery. Dr. Bill Bhatti of [facility]. PROCEDURES: Echocardiogram showing ejection fraction of 55%. Moderate pulmonary artery hypertension and small pericardial effusion. Laparotomy with exploration of abdominal cavity. Ileocecal ostomy with anastomosis. Irrigation of the abdominal cavity. Also during the same anesthesia, placement of left thoracostomy chest tube with drainage of 3 L of blood-tinged pleural fluid. HOSPITAL COURSE: This patient with AML, after history of previous colon cancer and lymphoma, had bee n sent to the hospital for initiation of chemotherapy for acute myelogenous leukemia. However, he pr esented with significant abdominal pain which had been increasing over a week with decreased bowel fu nction. The patient underwent abdominal x-ray series, which showed free air under the diaphragm. As the patient appeared increasingly ill and had tachycardia, he was taken to the operating room. Ther e he was found to have extensive carcinomatosis throughout the abdomen. The exploration showed a loo p of bowel entrapped and adherent in the pelvis, including distal small bowel and cecum. This was ev entually dissected out, and there was perforation of the bowel. He had an ileal cecostomy performed, along with an anastomosis, and revision of the anastomosis. The patient's abdomen was irrigated wit h 6 L of fluid, a drain placed, and closure was accomplished. The patient recovered after surgery an d anesthesia well initially, but remained tachycardic. His blood pressures remained good. Overnight that night, the patient developed worsening hypoxemia, and tachypnea, and increasing heart rate. Ch est x-ray showed satisfactory position of his chest tube, but increasing diffuse density in the left lung. It was felt that this could possibly include some pneumonia versus tumor. As the patient was remaining tachycardic and having worsening respiration issues, he was transferred to the [facility]. Shortly after arrival there, he was being assessed by his nurse and Dr. Bhatti, and he suddenly developed bradycardia with a pulse in the 20s, and shortly thereafter developed pulseless ventricular tachycardia. The patient had not been treated for the bradycardia, as he was expressing his wishes to be no cor. The patient was pronounced at 10:31 a.m. The cause of was pulseless ventricular tachycardia in the setting of acute respiratory failure, sepsis, peritonitis, with immune suppression due to acute leukemia. /[id number]/MODL
== END 2017-06-09 10:31 | disposition expired | DRG 329 ==
LOC: OBSVTOIN 10:34 → F1N 10:34 → F2N 17:59 → F1N 06-08 18:21 → F2N 06-09 09:53
PROVIDERS: ADMIT Hospitalist; ATTEND Hospitalist
PROC: 0DQ80ZZ Repair Small Intestine, Open Approach (ICD-10-PCS; principal; 2017-06-07 13:30)
PROC: 0W9B00Z Drainage of Left Pleural Cavity with Drainage Device, Open Approach (ICD-10-PCS; principal; 2017-06-07 13:30)
PROC: 0DTH0ZZ Resection of Cecum, Open Approach (ICD-10-PCS; principal; 2017-06-07 13:30)
PROC: 30233R1 Transfusion of Nonautologous Platelets into Peripheral Vein, Percutaneous Approach (ICD-10-PCS; 2017-06-07 13:30)
DX: K57.00 Diverticulitis of small intestine with perforation and abscess without bleeding (principal); A41.9 Sepsis, unspecified organism; J96.01 Acute respiratory failure with hypoxia; C78.6 Secondary malignant neoplasm of retroperitoneum and peritoneum; C85.90 Non-Hodgkin lymphoma, unspecified, unspecified site; J91.0 Malignant pleural effusion; I47.2 Ventricular tachycardia; D69.6 Thrombocytopenia, unspecified; I27.20 Pulmonary hypertension, unspecified; N28.89 Other specified disorders of kidney and ureter; Z85.038 Personal history of other malignant neoplasm of large intestine; Z93.3 Colostomy status
CPT/HCPCS: 97163-GP; J0330; J1170; J1450; J2185; J2270; J2370; J2405; J2704; J3010; P9035; P9041